=== PATIENT | female | born 1985 | race Two or more races ===

== ENCOUNTER 2017-08-25 16:05 | Inpatient (IN) | payer MEDICAID ==
[~2017-08-25] VITALS: Ht 154.9 cm; Wt 88.8 kg
[2017-08-25 16:28] VITALS: BP 136/82; PULSE 86; RESP 18; Ht 154.9 cm; Wt 88.8 kg
[2017-08-25] MEDS ORDERED: FERR325T5 PO (16:33)
[2017-08-25] MEDS ORDERED: PREN-99 PO (16:33)
[2017-08-25 17:32] LABS: ADD UMIC NO; UR ASCORBIC ACID NEGATIVE (NEGATIVE); UR BILIRUBIN (Dip) NEGATIVE (NEGATIVE); UR BLOOD (Dip) NEGATIVE (NEGATIVE); UR CLARITY CLEAR (CLEAR); UR COLOR YELLOW (YELLOW); UR GLUCOSE (Dip) 3+ mg/dL (NEGATIVE); UR KETONES (Dip) NEGATIVE (NEGATIVE); UR LEUKOCYTE ESTERASE (Dip) NEGATIVE Leu/ul (NEGATIVE); UR NITRITE (Dip) NEGATIVE (NEGATIVE); UR TOTAL PROTEIN (Dip) NEGATIVE (NEGATIVE); UR UROBILINOGEN (Dip) NEGATIVE (NEGATIVE)
--- NOTE | 2017-08-25 17:34 | TRIAGE ---
OB Triage Datetime Report Generated by CPN: 08/25/2017 17:34 Datetime: 08/25/2017 16:39 Vaginal Exam Dilatation (cms): 0.0 Exam By: KHEMANI Vaginal Bleeding: None Pool: Negative Nitrazine: Negative Cervix, Position: Posterior Datetime: 08/25/2017 16:20 Stage of : OB Triage Assessment Type: Triage Maternal Assessment Level of Consciousness: Fully Conscious DTR's/Clonus: DTRs 2+; No Clonus Headache: Denies Blurred Vision: No Respiratory Effort: Unlabored; Regular Rhythm; Equal Expansion Breath Sounds, Left: Clear and Equal Breath Sounds, Right: Clear and Equal Nausea/Vomiting: Denies RUQ Epigastric Pain: Denies Lower Extremities Edema: None Degree: None Upper Extremities Edema: None Degree: None Facial Edema: None Temperature Route: Oral Fall Risk Assessment History of Falling: (0) No Secondary Diagnosis: (0) No Ambulatory Aid: (0) Bedrest/Nurse Assist IV Therapy: (0) No Gait: (0) Normal/Bedrest/Immobile Mental Status: (0) Oriented to Own Ability Fall Score: 0 Fall Risk Score Definition: No Risk: No action required Labor Evaluation Frequency: none Monitor Mode: External Heart Rate FHR Baseline Rate: 125 Monitor Mode: External US FHR Baseline Changes: No Baseline Change Variability: Moderate 6-25 bpm Decelerations: None Category: Category I Pain Assessment Pain Scale: 4 Pain Presence: Intermittent Pain Type: Contraction; Ache Pain Location: Abdomen Datetime: 08/25/2017 16:17 Time of Arrival: 08/25/2017 16:02 EGA: 38.4 Arrived By: Ambulatory Arrived From: Home Chief Complaint: uterine contractions from 0630 am and possible SROM Movement: Present Contractions: Regular Time Contractions Began: 08/25/2017 06:30 Contractions: 30 Rupture of Membranes: Unsure Vaginal Bleeding: None Vaginal Discharge: Present Recent Sexual Intercouse: Denies Abdominal Trauma: Not Applicable Patient Complaints: Contractions; Other Time Provider Notified: 08/25/2017 17:08 Provider Notified: ALEX Initial Plan: EFM/SVE/ROM PLUS/BPP/UA
--- NOTE | 2017-08-25 17:35 | RADRPT ---
PROCEDURE: US biophysical profile. CLINICAL INDICATION: labor at 38 weeks gestational age. TECHNIQUE: Multiple sonographic images of the uterus were obtained. The images were revi ewed on a PACS workstation. COMPARISON: No prior studies are available for comparison. FINDINGS: There is a single live intrauterine gestation. heart rate is 143 beats per minute. The position is cephalic. The placenta is posterior grade II with no abruption or previa. The SYLVIA is 4.9 cm. (Normal = 5-20 cm.) Breathing Movement: 2 Gross Body Movement: 2 Tone: 2 Qualitative Amniotic Fluid Volume: 0 TOTAL: 6 IMPRESSION: 1. The biophysical score is 6/8. 2. Mild oligohydramnios. RPTAT: QQ .Karthik Rodgers MD, Date Time Electronically viewed and signed by .Karthik Rodgers MD, on 08/25/2017 17:35 .R/
[2017-08-25] MEDS ORDERED: OXYTOCIN 30 UNITS/LR 500 ML IV SCH ×2 (18:00)
[2017-08-25] MEDS ORDERED: MISOPROSTOL 200 MCG TAB PR PRN (18:00)
[2017-08-25] MEDS ORDERED: METHYLERGONOVINE 0.2 MG INJ IM PRN (18:00)
[2017-08-25] MEDS ORDERED: MISOPROSTOL 25 MCG CAPSULE PO SCH (18:00)
[2017-08-25] MEDS ORDERED: IBUPROFEN 600 MG TAB PO PRN (18:00)
[2017-08-25] MEDS ORDERED: OXYTOCIN 30 UNITS/LR 500 ML IV PRN (18:00)
[2017-08-25] MEDS ORDERED: LIDOCAINE 1% (MPF) 30 ML INJ INJ PRN (18:00)
[2017-08-25] MEDS ORDERED: CARBOPROST 250 MCG INJ IM PRN (18:00)
[2017-08-25] MEDS ORDERED: DINOPROSTONE 10 MG VAG SUPP VAG ONE ×2 (18:00→19:30)
[2017-08-25] MEDS ORDERED: LACTATED RINGER'S 1,000 ML IV PRN (18:00)
[2017-08-25] MEDS ORDERED: BUTORPHANOL 2 MG INJ IV PRN (18:00)
[2017-08-25] MEDS: LACTATED RINGER'S 1,000 ML IV SCH (19:37)
--- NOTE | 2017-08-25 20:07 | HP ---
Date/Time of Note Date/Time of Note DATE: 08/25/17 TIME: 20:02 OB - History Hx of Present Free Text/Dictation 31 y.o A2(sab) at 38ww4d with c/o irregular UC and SROMwhich was confirmed by ROM plus SYLVIA 4.9 EFM shows irregular U.C VE closed /long -3 admitted for induction of labor Chief Complaint: uc and srom Estimated Due Date: Sep 04, 2017 : 3 Para: 0 Spontaneous : 2 Therapeutic : 0 Care: Limited Care Ultrasounds: Normal mid trimester US Obstetrical Complications: None Medical Complications: None ( ) Past Family/Social History * Past Medical, Surgical, Family and Obstetric Histories reviewed from chart. Blood Type: O+ Rubella: immune RPR/VDRL: Negative GBS Status: Negative HBsAG: Negative OB Admission Exam Vital Signs Vital Signs Vital Signs Date Time Temp Pulse Resp B/P Pulse Ox O2 Delivery O2 Flow Rate FiO2 08/25/17 16:28 98.9 86 18 136/82 Room Air Physical Exam HEENT: WNL Heart: Rhythm Normal Lungs: Clear, Equal Abdomen: WNL Extremities: Normal Reflexes: Normal Cervical Dilatation: None Effacement: 0% Station: -3 Membranes: Ruptured Amniotic Fluid: Clear Heart Rate: 120's Accelerations: Accelerations Present Decelerations: No Decelerations Varibility: Moderate Contractions on Admission: >10 Minutes Apart Intensity: Mild OB Assessment/Plan Reason for admission: induction of labor, rupture of membranes Induction Method: per Misoprostol Protocol ISADORA GAMEZ MD Aug 25, 2017 20:07
[2017-08-25 20:09] LABS: BASOPHILS % 0.2 % (0.0-2.0); EOSINOPHILS % 0.1 % (0.0-7.0); HEMATOCRIT 41.7 % (37.0-47.0); HEMOGLOBIN 13.9 g/dl (12.0-16.0); LYMPHOCYTES # 1.6 10^3/ul (0.8-2.9); LYMPHOCYTES % 17.5 % (15.0-51.0); MEAN CORPUSCULAR HEMOGLOBIN 26.7 pg (29.0-33.0); MEAN CORPUSCULAR HGB CONC 33.3 g/dl (32.0-37.0); MEAN PLATELET VOLUME 11.3 fl (7.4-10.4); MONOCYTE # 0.5 10^3/ul (0.3-0.9); MONOCYTES % 5.9 % (0.0-11.0); NEUTROPHIL # 6.7 10^3/ul (1.6-7.5); PLATELET COUNT 268 10^3/UL (140-415); RED BLOOD COUNT 5.21 10^6/ul (4.20-5.40); RED CELL DISTRIBUTION WIDTH 16.4 % (11.5-14.5); WHITE BLOOD COUNT 8.9 10^3/ul (4.8-10.8)
[2017-08-25 20:23] LABS: ALBUMIN 3.8 g/dl (3.3-4.9); ALBUMIN/GLOBULIN RATIO 0.97; BILIRUBIN,INDIRECT 0.2 mg/dl (0-1.1); BILIRUBIN,TOTAL 0.2 mg/dl (0.2-1.3); CALCIUM 9.6 mg/dl (8.4-10.2); CREATININE 0.65 mg/dl (0.44-1.00); POTASSIUM 3.9 mmol/L (3.5-5.1); TOTAL PROTEIN 7.7 g/dl (6.1-8.1); URIC ACID 2.6 mg/dl (3.1-7.9)
[2017-08-25 20:58] LABS: INR 0.94; PROTIME 12.6 Sec (12.2-14.2)
[2017-08-26] MEDS ORDERED: FENTAnyl 2MCG/ML-ROPIV 0.2% 100 ML ONE (00:17)
[2017-08-26] MEDS ORDERED: NALOXONE (0.4 MG/ML) INJ IV PRN (01:00)
[2017-08-26] MEDS ORDERED: FENTAnyl 2MCG/ML-ROPIV 0.2% 100 ML BAG EPI SCH (01:00)
[2017-08-26] MEDS: LACTATED RINGER'S 1,000 ML IV SCH ×2 (02:06→16:40)
--- NOTE | 2017-08-26 07:06 | LDN ---
Date/Time of Note Date/Time of Note DATE: 08/26/17 TIME: 07:01 Delivery Summary normal vaginal delivery Weeks of Gestation 38w5d Placenta Delivered: Spontaneously Meconium: none Episiotomy: Yes Indication for episiotomy op and short perineum RML Perineal laceration: 0 Anesthesia type: Epidural Estimated blood loss: 300 Sponge & Needle done & correct: Yes All needle counts correct: Yes Any foreign bodies felt in the: No Problems: Infant Delivery Information Sex Sex: male Apgars 1 Minute: 9 5 Minute: 9 Suctioning Nose & mouth suctioned at rad: Yes Delee suction performed: No Umbilical Cord Umbilical cord with: 3 Vessels Cord presentations: no nuchal cord Cord Blood was obtained: Yes Mother & Baby Disposition Disposition Mom & Baby to Maternity; Good: Yes Mom transferred to: Other Baby to NICU: No () ISADORA GAMEZ MD Aug 26, 2017 07:06
[2017-08-26] MEDS ORDERED: OXYCODONE/ASPIRIN (4.88/325) TAB ONE (07:54)
[2017-08-26] MEDS ORDERED: METHYLERGONOVINE 0.2 MG INJ IM PRN (08:00)
[2017-08-26] MEDS ORDERED: CARBOPROST 250 MCG INJ IM PRN (08:00)
[2017-08-26] MEDS ORDERED: OXYCODONE/ASPIRIN (4.88/325) TAB PO PRN ×2 (08:00)
[2017-08-26] MEDS ORDERED: ZOLPIDEM 5 MG TAB PO PRN (08:00)
[2017-08-26] MEDS ORDERED: LANOLIN 7 GM TUBE TOP PRN (08:00)
[2017-08-26] MEDS ORDERED: MISOPROSTOL 200 MCG TAB PR PRN (08:00)
[2017-08-26] MEDS ORDERED: OXYTOCIN 30 UNITS/LR 500 ML IV PRN (08:00)
[2017-08-26 08:40] VITALS: BP 130/76; PULSE 76; RESP 20
[2017-08-26] MEDS: WITCH HAZEL/GLYCERIN PAD PR PRN (10:39)
[2017-08-26] MEDS: BENZOCAINE 20% 56 ML SPRAY TOP PRN (10:39)
[2017-08-26] MEDS: SENNA/DOCUSATE NA (8.6MG/50MG) TAB PO SCH ×2 (10:40→21:12)
[2017-08-26 11:50] VITALS: BP 123/60; PULSE 92; RESP 20
[2017-08-26] MEDS: IBUPROFEN 600 MG TAB PO SCH ×2 (12:00→18:35)
[2017-08-26 16:46] VITALS: BP 118/57; PULSE 78; RESP 20
[2017-08-26 19:45] VITALS: BP 113/67; PULSE 83; RESP 18
[2017-08-27] VITALS: BP 105/72; PULSE 78; RESP 18
[2017-08-27] MEDS: IBUPROFEN 600 MG TAB PO SCH ×4 (00:01→17:05)
[2017-08-27] MEDS: LACTATED RINGER'S 1,000 ML IV SCH ×2 (00:02→08:00)
[2017-08-27 04:13] VITALS: BP 114/68; PULSE 75; RESP 18
[2017-08-27 07:30] VITALS: BP 117/72; PULSE 78; RESP 18
[2017-08-27] MEDS: SENNA/DOCUSATE NA (8.6MG/50MG) TAB PO SCH ×2 (09:09→21:00)
[2017-08-27 10:37] LABS: BASOPHILS % 0.2 % (0.0-2.0); EOSINOPHILS % 0.3 % (0.0-7.0); HEMATOCRIT 31.5 % (37.0-47.0); HEMOGLOBIN 10.6 g/dl (12.0-16.0); LYMPHOCYTES # 2.5 10^3/ul (0.8-2.9); LYMPHOCYTES % 19.5 % (15.0-51.0); MEAN CORPUSCULAR HEMOGLOBIN 27.3 pg (29.0-33.0); MEAN CORPUSCULAR HGB CONC 33.7 g/dl (32.0-37.0); MEAN CORPUSCULAR VOLUME 81.2 fl (82.0-101.0); MEAN PLATELET VOLUME 11.6 fl (7.4-10.4); MONOCYTE # 0.7 10^3/ul (0.3-0.9); MONOCYTES % 5.4 % (0.0-11.0); NEUTROPHIL # 9.4 10^3/ul (1.6-7.5); PLATELET COUNT 217 10^3/UL (140-415); RED BLOOD COUNT 3.88 10^6/ul (4.20-5.40); RED CELL DISTRIBUTION WIDTH 16.8 % (11.5-14.5); WHITE BLOOD COUNT 12.7 10^3/ul (4.8-10.8)
[2017-08-27 15:45] VITALS: BP 114/66; PULSE 76; RESP 16
--- NOTE | 2017-08-27 19:09 | PN ---
Date/Time of Note Date/Time of Note DATE: 08/27/17 TIME: 19:03 OB Subjective Subjective Subjective cardona out urination ok OB Objective Objective Objective vss afebrile fundus firm lochia min calf neg for tenderness HEENT: WNL Heart: Rhythm Normal Lungs: Clear, Equal Abdomen: WNL Extremities: Normal Reflexes: Normal OB Assessment/Plan Other Assessment: stable Other plan: d/s home in am ISADORA GAMEZ MD Aug 27, 2017 19:09
[2017-08-27 20:15] VITALS: BP 124/76; PULSE 72; RESP 18
[2017-08-28] MEDS: IBUPROFEN 600 MG TAB PO SCH ×3 (00:01→12:29)
[2017-08-28 03:45] VITALS: BP 117/87; PULSE 87; RESP 18
--- NOTE | 2017-08-28 05:34 | PD.PPDC ---
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
--- NOTE | 2017-08-28 05:38 | DS ---
Date/Time of Note Date/Time of Note DATE: 08/28/17 TIME: 05:35 Obstetrical Discharge Record Final Diagnosis Final Diagnosis: Term delivered Vaginal Delivery Obstetrical Delivery: Spontaneous, Episiotomy, Repaired Complications Induction: Yes Rupture of Membranes: No Condition on Discharge Physical Assessment Last Vitals: vss afebrile Voiding: Yes Bowel Movement: Yes Breast: Soft, non-tender Fundus: Firm Episiotomy: healing ok Calf Tenderness: No Patient Condition: Stable ISADORA GAMEZ MD Aug 28, 2017 05:38
[2017-08-28] MEDS: WITCH HAZEL/GLYCERIN PAD PR PRN (05:50)
[2017-08-28] MEDS: BENZOCAINE 20% 56 ML SPRAY TOP PRN (05:50)
[2017-08-28 08:20] VITALS: BP 114/71; PULSE 74; RESP 18
[2017-08-28] MEDS ORDERED: DIPHTH/TET/ACEL PERTUSS (ADULT) 0.5 ML VIAL IM* ONE (09:00)
[2017-08-28] MEDS: SENNA/DOCUSATE NA (8.6MG/50MG) TAB PO SCH (09:00)
== END 2017-08-28 13:25 | disposition home or self-care (01) | DRG 775 ==
LOC: OBT 16:05 → L-D 16:07 → OBT 17:30 → L-D 17:30 → PP1 08-26 08:39
PROVIDERS: ADMIT Obstetrics & Gynecology; ATTEND Obstetrics & Gynecology
PROC: 4A1HXCZ Monitoring of Products of Conception, Cardiac Rate, External Approach (ICD-10-PCS; 2017-08-25)
PROC: 10E0XZZ Delivery of Products of Conception, External Approach (ICD-10-PCS; principal; 2017-08-26)
PROC: 0W8NXZZ Division of Female Perineum, External Approach (ICD-10-PCS; 2017-08-26)
DX: O80 Encounter for full-term uncomplicated delivery (principal); Z37.0 Single live birth; Z3A.38 38 weeks gestation of pregnancy
CPT/HCPCS: 62319; 76818; 80053; 81003; 84112; 84560; 85025; 85384; 85610; 85730; 86592; 86703; 86900; 86901; 87340; G0463; J2590; J3010; J7120

== ENCOUNTER 2018-12-24 22:42 | Inpatient (IN) | payer MEDICAID ==
[~2018-12-24] VITALS: Ht 162.6 cm; Wt 98.6 kg
[~2018-12-24 22:42] MED LIST: FERR325T5 PO; PREN-99 PO
[2018-12-24 22:50] VITALS: BP 143/90; PULSE 101; RESP 18; Ht 162.6 cm; Wt 98.6 kg
[2018-12-24] MEDS ORDERED: CALC600T24 PO (23:00)
[2018-12-25] MEDS ORDERED: LACTATED RINGER'S 1,000 ML IV PRN (01:04)
[2018-12-25] MEDS ORDERED: METHYLERGONOVINE 0.2 MG INJ IM PRN ×2 (01:30→22:30)
[2018-12-25] MEDS ORDERED: LIDOCAINE 1% (MPF) 30 ML INJ INJ PRN (01:30)
[2018-12-25] MEDS ORDERED: CARBOPROST 250 MCG INJ IM PRN ×2 (01:30→22:30)
[2018-12-25] MEDS ORDERED: MINERAL OIL LIGHT 10 ML VIAL TOP ONE (01:30)
[2018-12-25] MEDS ORDERED: IBUPROFEN 600 MG TAB PO PRN (01:30)
[2018-12-25] MEDS ORDERED: MISOPROSTOL 200 MCG TAB PR PRN ×2 (01:30→22:30)
[2018-12-25] MEDS ORDERED: BUTORPHANOL 2 MG INJ IV PRN (01:30)
[2018-12-25] MEDS ORDERED: OXYTOCIN 30 UNITS/LR 500 ML IV PRN ×2 (01:30→22:30)
[2018-12-25] MEDS ORDERED: OXYTOCIN 30 UNITS/LR 500 ML IV SCH ×3 (01:30)
--- NOTE | 2018-12-25 01:52 | HP ---
Date/Time of Note Date/Time of Note DATE: 12/25/18 TIME: 01:46 OB - History Hx of Present Free Text/Dictation 33-year-old man with single intrauterine at 37 weeks and 4 days with a THE[place] of 01/11/2019 complaining of vaginal spotting and back pain. she states good movement. She denies nausea, vomiting, shortness of breath, chest pain, headache, visual changes or LOF. Chief Complaint: Vaginal spotting and back pain Estimated Due Date: Jan 11, 2019 : 2 Para: 1 Spontaneous : 0 Therapeutic : 0 Care: Good Care Ultrasounds: Normal mid trimester US Obstetrical Complications: None Medical Complications: None Past Family/Social History * Past Medical, Surgical, Family and Obstetric Histories reviewed from chart. Blood Type: O+ Rubella: immune RPR/VDRL: Negative GBS Status: Negative HBsAG: Negative OB Admission Exam Vital Signs Vital Signs Vital Signs Date Temp Pulse Resp B/P (MAP) Pulse Ox O2 O2 Flow FiO2 Time Delivery Rate 12/24/18 98.0 101 18 143/90 Room Air 22:50 (107) Physical Exam HEENT: WNL Heart: Rhythm Normal Abdomen: WNL Extremities: Normal Reflexes: Normal Cervical Dilatation: 2cm Effacement: 50% Station: -2 Membranes: Intact Heart Rate: 140's Accelerations: Accelerations Present Decelerations: No Decelerations Varibility: Moderate Contractions on Admission: 6-10 Minutes Apart Intensity: Mild Last 72 hours Lab Results CBC & BMP 12/24/18 23:35 Liver Function Test 12/24/18 23:35 Alanine Aminotransferase (ALT/SGPT) < 6 L Albumin 3.5 Alkaline Phosphatase 195 H Aspartate Amino Transf (AST/SGOT) 14 L Direct Bilirubin 0.00 Total Protein 6.8 OB Assessment/Plan Other plan: 33-year-old 2 para 1 with gestational hypertension versus preeclampsia at 37 weeks and 4 days- FHR: No sign of metabolic acidosis- Category I - Continuous EFM, toco - CBC, blood type and screen, CMP uric acid and urinalysis - Cytotec per protocol - Analgesia options with R/B/A discussed in detail with patient - Epidural per patient request - Please see the orders - O+/Rubella: Immune - GBS: Negative Admission, procedures, expectations, risks and possible complications have been discussed in detail with the patient. Risk of vaginal delivery including but not limited to bleeding, infection, cervical laceration, placental retention, injury to fetus, blood transfusion, blood transfusion related infection, risk of anesthesia, adhesion, cervical laceration, episiotomy/laceration, possible delivery with risk of bleeding, infection, injury to other organs (bowel, bladder, ureter, vessels, nerves), injury to fetus, blood transfusion, blood transfusion related infection, risk of anesthesia, scar and hernia formation, needs for future , removal of uterus or any other indicated surgery discussed with the patient. She expressed understanding and repeats the risks. All of her questions were answered. She signed the informed consent. PHYSICIAN'S VERIFICATION OF INFORMED CONSENT The patient was counseled regarding the procedure, its indications, risks, potential complications and alternatives and any questions were answered. Co nsent was obtained. PLANNED PROCEDURE/TREATMENT: Vaginal delivery, episiotomy, repair of laceration possible delivery BROOKE ESPOSITO Dec 25, 2018 01:52
[2018-12-25] MEDS: LACTATED RINGER'S 1,000 ML IV SCH ×3 (02:34→19:41)
--- NOTE | 2018-12-25 02:44 | TRIAGE ---
OB Triage Datetime Report Generated by CPN: 12/25/2018 02:44 Datetime: 12/25/2018 02:30 Stage of : Labor Assessment Type: Admission Assessment Vaginal Bleeding: None Maternal Assessment Level of Consciousness: Fully Conscious DTR's/Clonus: DTRs 2+; No Clonus Headache: Denies Blurred Vision: No Respiratory Effort: Unlabored; Regular Rhythm; Equal Expansion Breath Sounds, Left: Clear and Equal Breath Sounds, Right: Clear and Equal Nausea/Vomiting: Denies RUQ Epigastric Pain: Denies Lower Extremities Edema: None Degree: None Upper Extremities Edema: None Degree: None Facial Edema: None Temperature Route: Oral Fall Risk Assessment History of Falling: (0) No Secondary Diagnosis: (0) No Ambulatory Aid: (0) Bedrest/Nurse Assist IV Therapy: (20) Yes Gait: (0) Normal/Bedrest/Immobile Mental Status: (0) Oriented to Own Ability Fall Score: 20 Fall Risk Score Definition: No Risk: No action required Labor Evaluation Frequency: irregular Monitor Mode: External Pattern: Normal: <= 5 Contractions in 10 Minutes Resting Tone [place]: Relaxed Heart Rate FHR Baseline Rate: 135 Monitor Mode: External US Variability: Moderate 6-25 bpm Accelerations: 15X15 Decelerations: None Category: Category I Pain Assessment Pain Scale: 0 Pain Presence: None/Denies Pain Type: N/A Membrane Status: Intact Datetime: 12/25/2018 02:00 Time of Arrival: 12/25/2018 02:00 EGA: 37.4 Arrived By: Ambulatory Labor Evaluation Frequency: OCCASIONAL Monitor Mode: External Duration (sec)2399: 60-80 Pattern: Normal: <= 5 Contractions in 10 Minutes Heart Rate FHR Baseline Rate: 140 Monitor Mode: External US Variability: Minimal - Undetectable to <=5 bpm Decelerations: None Datetime: 12/25/2018 01:45 Stage of : Labor Datetime: 12/25/2018 01:00 Monitor Mode: External Pattern: Normal: <= 5 Contractions in 10 Minutes Heart Rate FHR Baseline Rate: 135 Monitor Mode: External US Variability: Moderate 6-25 bpm Accelerations: 15X15 Decelerations: Variable Datetime: 12/25/2018 00:28 Monitor Mode: External Monitor Mode: External US Pain Assessment Comments: PT STATES SHE HAS CONTINUED TO NOT FEEL UC'S WHILE HERE Datetime: 12/25/2018 00:00 Labor Evaluation Frequency: X1 Monitor Mode: External Duration (sec)2399: 60 Pattern: Normal: <= 5 Contractions in 10 Minutes Heart Rate FHR Baseline Rate: 135 Monitor Mode: External US Variability: Moderate 6-25 bpm Accelerations: 15X15 Decelerations: None Datetime: 12/24/2018 23:10 Pain Assessment Comments: PT STATES SHE HAS NOT FELT A SINGLE UC OR BACK PAIN WHILE SHE HAS BEEN HE RE Vaginal Exam Dilatation (cms): 2.0 Effacement (%): 50 Station: -3 Datetime: 12/24/2018 23:00 Monitor Mode: External Pattern: Normal: <= 5 Contractions in 10 Minutes Heart Rate FHR Baseline Rate: 135 Monitor Mode: External US Variability: Moderate 6-25 bpm Accelerations: 15X15 Decelerations: None Datetime: 12/24/2018 22:50 Stage of : OB Triage Maternal Assessment Level of Consciousness: Fully Conscious DTR's/Clonus: DTRs 2+; No Clonus Headache: Denies Breath Sounds, Left: Clear and Equal Breath Sounds, Right: Clear and Equal Nausea/Vomiting: Denies RUQ Epigastric Pain: Denies Temperature Route: Oral Pain Assessment Pain Scale: 5 Pain Presence: Intermittent Pain Type: Contraction Pain Location: Back Pain Goal: 0 Pain Relief Measures: Comfort Measures Datetime: 12/24/2018 22:46 Time of Arrival: 12/24/2018 22:35 EGA: 37.3 Arrived From: Home Chief Complaint: back pain, contractions and spotting Movement: Present Contractions: Regular Time Contractions Began: 12/23/2018 19:00 Contractions: Q5min Rupture of Membranes: Denies Vaginal Bleeding: Normal Show Vaginal Discharge: Denies Recent Sexual Intercouse: Denies Patient Complaints: Contractions Time Provider Notified: 12/24/2018 23:15 Provider Notified: VERA Initial Plan: CEFM, SVE Datetime: 12/24/2018 22:45 Time of Arrival: 12/24/2018 22:35 Arrived By: Wheelchair Arrived From: Home Chief Complaint: back pain and spotting Movement: Present Initial Plan: cefm, sve, BPP, EFW, CBC, CMP, URIC ACID AND UA
--- NOTE | 2018-12-25 11:22 | PREAC ---
Date/Time of Note Date/Time of Note DATE: 12/25/18 TIME: 11:21 Anesthesia Eval and Record Evaluation Time Pre-Procedure Interview DATE: 12/25/18 TIME: 11:21 Age 33 Sex female NPO: 8 hrs Preoperative diagnosis iup at 37 weeks Planned procedure labor epidural Past Medical History Past Medical History: Includes GI: Obesity : PIH Surgery & Anesthesia Issues No known issue Meds Anticoagulation: No Beta Brian within 24 hr: No Reason Beta Brian not given: Pt. not on B-Brian Reported Medications Calcium Carbonate* (Calcium Carbonate*) 600 MG Ca Tab, 600 MG PO, TAB 12/24/18 Ferrous Sulfate (Ferrous Sulfate) 325 Mg Tablet.dr, 325 MG PO DAILY 08/25/17 Vit #76/Iron,Carb/FA (Pnv 29-1 Tablet) 1 Each Tablet, 1 EACH PO DAILY, TAB 08/25/17 Current Medications Lactated Ringer's 1,000 ml @ 125 mls/hr Q8H IV Last administered on 12/25/18at 09:15; Admin Dose 125 MLS/HR; Start 12/25/18 at 01:04 Butorphanol Tartrate (Stadol) 2 mg Q2H PRN IV .PAIN; Start 12/25/18 at 01:30 Lidocaine (Xylocaine 1% (Mpf)) 30 ml ONCE PRN INJ .EPISIOTOMY; Start 12/25/18 at 01:30 Oxytocin/Lactated Ringer's 500 ml @ 500 mls/hr ONCE POST IV ; Start 12/25/18 at 01:30 Oxytocin/Lactated Ringer's 500 ml @ 125 mls/hr POST IV ; Start 12/25/18 at 01:30 Ibuprofen (Motrin) 600 mg ONCE PRN PO .PAIN 1-5; Start 12/25/18 at 01:30 Lactated Ringer's 1,000 ml @ 2,000 mls/hr Q30M PRN IV .ANESTHESIA; Start 12/25/18 at 01:04 Oxytocin/Lactated Ringer's 500 ml @ 0 mls/hr ONCE PRN IV .VAGINAL BLEEDING; Start 12/25/18 at 01:30 Methylergonovine Maleate (Methergine) 0.2 mg ONCE PRN IM .VAGINAL BLEEDING; Start 12/25/18 at 01:30 Carboprost Tromethamine (Hemabate) 250 mcg ONCE PRN IM .VAGINAL BLEEDING; Start 12/25/18 at 01:30 Misoprostol (Cytotec) 1,000 mcg ONCE PRN [place] .VAGINAL BLEEDING; Start 12/25/18 at 01:30 Oxytocin/Lactated Ringer's 500 ml @ 0 mls/hr FOR INDUCTION IV Last administered on 12/25/18at 03:24; Admin Dose 1 MLS/HR; Start 12/25/18 at 01:30 Meds reviewed: Yes Allergies Coded Allergies: latex (Unverified Allergy, Mild, 08/25/17) itchiness, swelling Allergies Reviewed: Yes Labs/Studies Labs Reviewed: Reviewed by anesthesiologist Result Diagram: 12/24/18 2335 12/24/18 2335 Laboratory Tests 12/24/18 23:35 Blood Bank Test 12/24/18 23:35 Antibody Screen NEGATIVE Blood Type O POSITIVE Rh Immune Globulin Candidate NO test: Positive Pre-procedure Exam Last vitals Vital Signs Date Temp Pulse Resp B/P (MAP) Pulse Ox O2 O2 Flow FiO2 Time Delivery Rate 12/24/18 98.0 101 18 143/90 Room Air 22:50 (107) Airway: Adequate mouth opening, Adequate thyromental dist Mallampati: Mallampati II Teeth: Normal Lung: Normal Heart: Normal ASA Physical Status ASA physical status: 2 Emergency: None Planned Anesthetic Neuraxial: Epidural Planned Pain Management Parenteral pain med Pre-operative Attestations Prior to commencing anesthesia and surgery, the patient was re-evaluated, there was verification of: *The patient's identity *The results of appropriate recent lab work and preoperative vital signs *The above evaluation not changing prior to induction *Anesthetic plan, risk benefits, alternative and complications discussed with patient/family; questions answered; patient/family understands, accepts and wishes to proceed. SANIYA LYLE Dec 25, 2018 11:22
[2018-12-25] MEDS ORDERED: FENTAnyl 2MCG/ML-ROPIV 0.2% 100 ML ONE (11:24)
[2018-12-25] MEDS ORDERED: FENTAnyl 2MCG/ML-ROPIV 0.2% 100 ML BAG EPI SCH (11:30)
[2018-12-25] MEDS ORDERED: DIPHENHYDRAMINE 50 MG INJ IV PRN ×2 (11:30→22:30)
[2018-12-25] MEDS ORDERED: NALOXONE (0.4 MG/ML) INJ IV PRN (11:30)
[2018-12-25] MEDS ORDERED: ONDANSETRON 4 MG INJ IV PRN ×2 (11:30→22:30)
--- NOTE | 2018-12-25 13:11 | PAC ---
Date/Time of Note Date/Time of Note DATE: 12/25/18 TIME: 13:11 Post-Anesthesia Notes Post-Anesthesia Note Last documented vital signs Vital Signs Date Temp Pulse Resp B/P (MAP) Pulse Ox O2 O2 Flow FiO2 Time Delivery Rate 12/25/18 98.0 101 18 143/90 Room Air 1311 (107) Activity: WNL Respiratory function: WNL Cardiovascular function: WNL Mental status: Baseline Pain reasonably controlled: Yes Hydration appropriate: Yes Nausea/Vomiting absent: Yes SANIYA LYLE Dec 25, 2018 13:11
--- NOTE | 2018-12-25 16:48 | PREAC ---
Date/Time of Note Date/Time of Note DATE: 12/25/18 TIME: 16:47 Anesthesia Eval and Record Evaluation Time Pre-Procedure Interview DATE: 12/25/18 TIME: 16:47 Age 33 Sex female NPO: 8 hrs Preoperative diagnosis iup at term with deceleration Planned procedure primary c section Past Medical History Past Medical History: Includes : PIH Surgery & Anesthesia Issues No known issue Meds Anticoagulation: No Beta Brian within 24 hr: No Reason Beta Brian not given: Pt. not on B-Brian Reported Medications Calcium Carbonate* (Calcium Carbonate*) 600 MG Ca Tab, 600 MG PO, TAB 12/24/18 Ferrous Sulfate (Ferrous Sulfate) 325 Mg Tablet.dr, 325 MG PO DAILY 08/25/17 Vit #76/Iron,Carb/FA (Pnv 29-1 Tablet) 1 Each Tablet, 1 EACH PO DAILY, TAB 08/25/17 Current Medications Lactated Ringer's 1,000 ml @ 125 mls/hr Q8H IV Last administered on 12/25/18at 09:15; Admin Dose 125 MLS/HR; Start 12/25/18 at 01:04 Butorphanol Tartrate (Stadol) 2 mg Q2H PRN IV .PAIN; Start 12/25/18 at 01:30 Lidocaine (Xylocaine 1% (Mpf)) 30 ml ONCE PRN INJ .EPISIOTOMY; Start 12/25/18 at 01:30 Oxytocin/Lactated Ringer's 500 ml @ 500 mls/hr ONCE POST IV ; Start at 01:30 Oxytocin/Lactated Ringer's 500 ml @ 125 mls/hr POST IV ; Start 12/25/18 at 01:30 Ibuprofen (Motrin) 600 mg ONCE PRN PO .PAIN 1-5; Start 12/25/18 at 01:30 Lactated Ringer's 1,000 ml @ 2,000 mls/hr Q30M PRN IV .ANESTHESIA; Start 12/25/18 at 01:04 Oxytocin/Lactated Ringer's 500 ml @ 0 mls/hr ONCE PRN IV .VAGINAL BLEEDING; Start 12/25/18 at 01:30 Methylergonovine Maleate (Methergine) 0.2 mg ONCE PRN IM .VAGINAL BLEEDING; Start 12/25/18 at 01:30 Carboprost Tromethamine (Hemabate) 250 mcg ONCE PRN IM .VAGINAL BLEEDING; Start 12/25/18 at 01:30 Misoprostol (Cytotec) 1,000 mcg ONCE PRN [place] .VAGINAL BLEEDING; Start 12/25/18 at 01:30 Oxytocin/Lactated Ringer's 500 ml @ 0 mls/hr FOR INDUCTION IV Last administered on 12/25/18at 03:24; Admin Dose 1 MLS/HR; Start 12/25/18 at 01:30 Naloxone HCl (Narcan) 0.1 mg Q2M PRN IV .RESP RATE; Start 12/25/18 at 11:30; Stop 12/26/18 at 11:29 Diphenhydramine HCl (Benadryl) 25 mg Q6H PRN IV .ITCHING; Start 12/25/18 at 11:30; Stop 12/26/18 at 11:29 Ondansetron HCl (Zofran Inj) 4 mg Q6H PRN IV .NAUSEA/VOMITING; Start 12/25/18 at 11:30; Stop 12/26/18 at 11:29 Fentanyl/ Ropivacaine 100 ml EPIDURAL INFUSION EPI ; Start 12/25/18 at 11:30 Cefazolin Sodium/ Dextrose 50 ml @ 100 mls/hr ONCE IVPB ; Start 12/25/18 at 17:00; Stop 12/26/18 at 16:59 Meds reviewed: Yes Allergies Coded Allergies: latex (Unverified Allergy, Mild, 08/25/17) itchiness, swelling Allergies Reviewed: Yes Labs/Studies Labs Reviewed: Reviewed by anesthesiologist Result Diagram: 12/24/18 2335 12/24/18 2335 Laboratory Tests 12/24/18 23:35 Blood Bank Test 12/24/18 23:35 Antibody Screen NEGATIVE Blood Type O POSITIVE Rh Immune Globulin Candidate NO test: Positive Pre-procedure Exam Last vitals Vital Signs Date Temp Pulse Resp B/P (MAP) Pulse Ox O2 O2 Flow FiO2 Time Delivery Rate 12/24/18 98.0 101 18 143/90 Room Air 22:50 (107) Airway: Adequate mouth opening, Adequate thyromental dist Mallampati: Mallampati II Teeth: Normal Lung: Normal Heart: Normal ASA Physical Status ASA physical status: 2 Emergency: None Planned Anesthetic Neuraxial: Epidural Planned Pain Management Epidural, Parenteral pain med Pre-operative Attestations Prior to commencing anesthesia and surgery, the patient was re-evaluated, there was verification of: *The patient's identity *The results of appropriate recent lab work and preoperative vital signs *The above evaluation not changing prior to induction *Anesthetic plan, risk benefits, alternative and complications discussed with pa tient/family; questions answered; patient/family understands, accepts and wishes to proceed. SANIYA LYLE Dec 25, 2018 16:48
[2018-12-25] MEDS ORDERED: LIDOCAINE 1.5%/EPI MPF (SDV) 30 ML VIAL ONE (16:49)
[2018-12-25] MEDS ORDERED: FENTAnyl 50 MCG/ML VIAL ONE (16:49)
[2018-12-25] MEDS ORDERED: DEXAMETHASONE 4 MG/ML 1 ML INJ ONE (16:51)
[2018-12-25] MEDS ORDERED: CEFAZOLIN 2 GM/50 ML (PMX) 50 ML IVPB SCH ×3 (17:00→23:30)
--- NOTE | 2018-12-25 17:02 | QN ---
Documentation Comment VE complete but high on second stage prolong bradycardia down to 60's for few min back to base line which was 120's but another eisode of 80s for 1min head is high 3800gm previous baby 5lb's primary c/s chosen to be mode of delivery due to prolong bradycardia ISADORA GAMEZ MD Dec 25, 2018 17:02
[2018-12-25] MEDS ORDERED: morphine SULFATE/PF (10 MG/10 ML) INJ ONE (17:19)
[2018-12-25] MEDS ORDERED: EPHEDrine 25 MG/5 ML SYG ONE (17:28)
--- NOTE | 2018-12-25 19:12 | OPPN ---
Date/Time of Note Date/Time of Note DATE: 12/25/18 TIME: 19:07 Operative Report Planned Procedure Free Text/Dictation see preop note on quick note Procedure date Dec 25, 2018 Procedure(s) primary LTCS Performed by see signature line Joy Loader: YANN ALVAREZ MD 2nd Joy Loader none Anesthesiologist: SANIYA LYLE Pre-procedure diagnosis IUP 37w4d GHTN prolong ed bradycardia second stage arrest [id number] Anesthesia Type: Facax4l epidural Post-Procedure Post-procedure diagnosis delivered normal male occult cord prolapse Findings Live Baby [m], Apgars [3] and [9], weight [8Lb 6oz ], position OA ], [VX ] presentation [occuly prolapse]cord. Estimated Blood Loss: 500 - 600 mls Specimen(s) none Grafts/Implant(s) none Complication(s) none ISADORA GAMEZ MD Dec 25, 2018 19:12
[2018-12-25] MEDS ORDERED: MEPERIDINE 25 MG INJ ONE (19:21)
[2018-12-25] MEDS ORDERED: MEPERIDINE 25 MG INJ IV ONE (19:30)
--- NOTE | 2018-12-25 20:29 | OPR ---
DATE OF OPERATION: 12/25/2018 PREOPERATIVE DIAGNOSES: Intrauterine 37 weeks 4 days, prolonged bradycardia on second stag e and gestational hypertension, occult cord prolapse. POSTOPERATIVE DIAGNOSES: Intrauterine 37 weeks 4 days, prolonged bradycardia on second sta ge and gestational hypertension, occult cord prolapse. Delivered the normal male infant with 3 89. Fluid was clear. ANESTHESIA: Epidural. ANESTHESIOLOGIST: Sean Sneed MD SURGEON: Walt Wilson MD CELL TUBER MACHINE: Luly Holbrook MD ESTIMATED BLOOD LOSS: Approximately 600 mL. PROCEDURE: Under proper induction of epidural anesthesia, the patient was placed in the supine posit ion. Abdominal wall was prepped and draped in usual aseptic manner. A transverse incision was made and a fascial flap was created and 2 rectus muscles split in the midline and peritoneal cavity was en tered. Bladder blade introduced, a transverse incision was made much higher than the uterovesical re flection. Incision carried down and delivered normal male . The baby was impacted in the vagi na which was difficult to bring out, but upon entering the uterine cavity, there was a bundle of cord was coming out, which was pushed in and able to bring out the baby from the vagina and delivered and the cord was clamped and cut, handed to the respiratory care personnel, and baby was 389. ___ __ of cord was sent for the gas study after blood was obtained from the cord. The placenta was remov ed manually after uterus was exteriorized and uterus was enlarged with multiple uterine fibroids note d. The placenta was removed. The uterine incision was closed using 0 chromic catgut in continuous m jakob on the first layer and second layer using 0 chromic catgut in continuous manner. Because of th e lateral extension on the mesosalpinx, it was oozing on the right lateral aspect which need the extr a suture for controlling the bleeder. There were multiple areas that we need reinforced with #1 PDS with a [id number]-lfewj manner. After the incisional site was closed and because of the little oozing on the right lateral aspect close to the mesosalpinx, Surgiflo was introduced. After the uterus was relocated and rechecked and then put the Surgiflo on the right lateral aspect of the incisional site . The incision was relatively dry and water checked. There was no leaking blood. A piece of Surgic el was laid on the uterine incisional site after the vigorous irrigation was done. Lap count were mu ltiple counted which was correct. Parietal peritoneum was closed using 0 chromic catgut in continuou s manner, muscle closed with 0 chromic catgut in continuous manner. Fascia closed with #1 Vicryl in continuous manner in 2 segments. The subcutaneous tissue irrigated with water. This layer was appro ximated with a 2-0 plain in continuous manner. Skin closed with a 3-0 Monocryl in subcuticular artemio r. The Steri-Strips were applied. A pressure dressing applied. Estimated blood loss approximately 600 mL. Urine output was less than 100 mL, which was bloody, but the tubing was clear. The patient was sent to the recovery room in stable condition. Dictated By: WALT MERRITT/SAADIA Conf#: [id number] DID#: [id number]
--- NOTE | 2018-12-25 20:36 | PAC ---
Date/Time of Note Date/Time of Note DATE: 12/25/18 TIME: 20:35 Post-Anesthesia Notes Post-Anesthesia Note Last documented vital signs Vital Signs Date Temp Pulse Resp B/P (MAP) Pulse Ox O2 O2 Flow FiO2 Time Delivery Rate 12/25/18 98.0 101 18 143/90 Room Air 2030 (107) Activity: WNL Respiratory function: WNL Cardiovascular function: WNL Mental status: Baseline Pain reasonably controlled: Yes Hydration appropriate: Yes Nausea/Vomiting absent: Yes SANIYA LYLE Dec 25, 2018 20:36
[2018-12-25] MEDS ORDERED: CA GLUCONATE (GM) 10% 10ML INJ IV PRN (21:00)
[2018-12-25] MEDS ORDERED: MAGNESIUM SULFATE 4 GM/100 ML 100 ML IV SCH (21:00)
[2018-12-25] MEDS: MAGNESIUM SULFATE 20 GM/500 ML 500 ML IV SCH (21:19)
[2018-12-25 22:25] VITALS: BP 135/67; PULSE 109; RESP 18
[2018-12-25] MEDS ORDERED: LANOLIN HPA 1 PKT TOP PRN (22:30)
[2018-12-25] MEDS ORDERED: ZOLPIDEM 5 MG TAB PO PRN (22:30)
[2018-12-25] MEDS ORDERED: LACTATED RINGER'S 1,000 ML IV SCH (22:30)
[2018-12-25] MEDS ORDERED: OXYCODONE/ACETAMINOPHEN (5/325) TAB PO PRN ×2 (22:30)
[2018-12-25] MEDS: CLINDAMYCIN 600 MG/D5W (PMX) 50 ML IVPB SCH (23:49)
[2018-12-26] VITALS (19 sets, daily range): BP systolic 102–146; BP diastolic 51–78; PULSE 68–113; RESP 18–20
[2018-12-26] MEDS ORDERED: CEFAZOLIN 2 GM/50 ML (PMX) 50 ML IVPB SCH ×2 (01:00→13:00)
[2018-12-26] MEDS: CLINDAMYCIN 600 MG/D5W (PMX) 50 ML IVPB SCH ×3 (05:25→17:34)
[2018-12-26] MEDS: IBUPROFEN 600 MG TAB PO SCH ×5 (05:38→23:44)
[2018-12-26] MEDS: SENNA/DOCUSATE NA (8.6MG/50MG) TAB PO SCH ×2 (08:28→20:58)
[2018-12-26] MEDS: MAGNESIUM SULFATE 20 GM/500 ML 500 ML IV SCH (11:46)
[2018-12-26] MEDS: LACTATED RINGER'S 1,000 ML IV SCH (11:47)
--- NOTE | 2018-12-26 13:36 | QN ---
Documentation Comment no flatus vss afebrile abdomen soft wound dry calf neg for tenderness lochia mod A S/P prim c/s#1 P sa ordered ISADORA GAMEZ MD Dec 26, 2018 13:36
[2018-12-26] MEDS: CEFAZOLIN 2 GM in SOD CHLORIDE 0.9% 50 ML IVPB SCH (23:42)
[2018-12-27] MEDS: CLINDAMYCIN 600 MG/D5W (PMX) 50 ML IVPB SCH ×4 (00:28→17:56)
[2018-12-27 03:25] VITALS: BP 119/71; PULSE 87; RESP 18
[2018-12-27] MEDS: IBUPROFEN 600 MG TAB PO SCH ×3 (05:30→17:57)
[2018-12-27] MEDS: CEFAZOLIN 2 GM in SOD CHLORIDE 0.9% 50 ML IVPB SCH ×3 (06:33→21:47)
[2018-12-27 08:00] VITALS: BP 109/69; PULSE 81; RESP 18
--- NOTE | 2018-12-27 09:12 | OPPN ---
Date/Time of Note Date/Time of Note DATE: 12/27/18 TIME: 09:11 Anesthesia Follow up Anesthesia Follow up Last documented vital signs Vital Signs Date Temp Pulse Resp B/P (MAP) Pulse Ox O2 O2 Flow FiO2 Time Delivery Rate 12/27/18 98.7 87 18 119/71 Room Air 08:25 (87) 12/26/18 98 12:00 Respiratory function: WNL Cardiovascular function: WNL Comments satisfactory pain management from intrathecal duramorph. no complications SANIYA LYLE Dec 27, 2018 09:12
[2018-12-27] MEDS: SENNA/DOCUSATE NA (8.6MG/50MG) TAB PO SCH ×2 (10:12→21:27)
--- NOTE | 2018-12-27 10:35 | QN ---
Documentation Comment passing flatus afebrile vss abdomen tympanic wound dry calf neg for tenderness lochia min A s/p p c/s #2 leukocytosis P repeat CBC ISADORA GAMEZ MD Dec 27, 2018 10:35
[2018-12-27 16:29] VITALS: BP 109/75; PULSE 75; RESP 18
[2018-12-27 19:55] VITALS: BP 111/59; PULSE 88; RESP 16
[2018-12-28] MEDS: CLINDAMYCIN 600 MG/D5W (PMX) 50 ML IVPB SCH ×2 (00:23→05:56)
[2018-12-28] MEDS: IBUPROFEN 600 MG TAB PO SCH ×4 (00:23→17:47)
[2018-12-28 06:45] VITALS: BP 105/52; PULSE 78; RESP 16
[2018-12-28 08:55] VITALS: BP 114/68; PULSE 82; RESP 16
[2018-12-28] MEDS ORDERED: DIPHTH/TET/ACEL PERTUSS (ADULT) 0.5 ML VIAL IM* ONE (09:00)
[2018-12-28] MEDS: SENNA/DOCUSATE NA (8.6MG/50MG) TAB PO SCH ×2 (10:15→21:17)
[2018-12-28 11:25] VITALS: BP 114/68; PULSE 82; RESP 16
[2018-12-28 16:00] VITALS: BP 128/79; PULSE 83; RESP 16
[2018-12-28 20:20] VITALS: BP 130/82; PULSE 85; RESP 18
[2018-12-29] MEDS: IBUPROFEN 600 MG TAB PO SCH ×4 (00:40→18:08)
[2018-12-29 04:27] VITALS: BP 134/71; PULSE 69; RESP 18
--- NOTE | 2018-12-29 08:59 | DS ---
Date/Time of Note Date/Time of Note DATE: 12/29/18 TIME: 08:57 Obstetrical Discharge Record Final Diagnosis Final Diagnosis: Term delivered Other Final Diagnosis CAT II GHTN Section Section: Primary Primary Indication CATII tracing secondary to occult cord prolapse Condition on Discharge Physical Assessment Last Vitals: vss afebrile Voiding: Yes Bowel Movement: Yes Breast: Soft, non-tender Fundus: Firm Abdomen and Incision: soft wound dry Episiotomy: n/a Calf Tenderness: No Patient Condition: Stable ISADORA GAMEZ MD Dec 29, 2018 08:59
[2018-12-29 09:00] VITALS: BP 136/85; PULSE 73; RESP 16
--- NOTE | 2018-12-29 09:00 | PD.PPDC ---
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 Diagnosis [id number] Final Diagnosis: Kwxvx6a s/p primary c/s Condition Dhnex2Hb Patient Condition: Rtbzk1j Stable Diet Kaqoq1Jh Diet: Nxvtz8r Resume Regular Diet Activity/Restrictions Nlbhg6Yc Activity: Womsd0o May Shower Rfixy8Qe Restrictions: Pwgat6e No Exercising No Lifting No Driving Minimize Stair-climbing No Sexual Activity Nothing in the Vagina No [place] No Tampons, douche Wound/Drain Care Instructions Oibye1Rc Wound/Drain Care Instructions: Ebtig8t Wash with soap and water Keep clean and dry Follow-up Follow-up with Physician: 2, Week/Weeks Return to clinic for Tbode3Ci 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
[2018-12-29] MEDS: SENNA/DOCUSATE NA (8.6MG/50MG) TAB PO SCH (12:04)
[2018-12-29 16:00] VITALS: BP 135/91; PULSE 70; RESP 16
--- NOTE | 2019-01-02 11:26 | DELSUM ---
Delivery Summary A-C Datetime Report Generated by CPN: 01/02/2019 11:20 DELIVERY PERSONNEL Echo Technician: Vinod Win MATERNAL INFORMATION Delivery Anesthesia: Spinal Medications in Delivery: see anesthesia record Delivery QBL (ml): 800 Placenta Cultured: No Maternal Complications: Other Other Maternal Complications: Gestational hyptertension LABOR SUMMARY EDC: 01/11/2019 00:00 No. Babies in Womb: 1 Attempted: No Labor Anesthesia: Epidural LABOR INFORMATION Reason for Induction: Chronic Hypertension Onset of Labor: 12/25/2018 12:00 Complete Dilatation: 12/25/2018 15:48 Oxytocin: Induction Group B Beta Strep: Negative Antibiotics # of Doses: 1 Antibiotics Time of Last Dose: 12/25/2018 17:00 Steroids Given: None Reason Steroids Not Administered: Not Applicable MEMBRANES Membranes Rupture Method: Spontaneous Rupture of Membranes: 12/25/2018 15:48 Length of Rupture (hr): 1.38 Amniotic Fluid Color: Clear Amniotic Fluid Amount: Small Amniotic Fluid Odor: None STAGES OF LABOR Stage 1 hr: 3 Stage 1 min: 48 Stage 2 hr: 1 Stage 2 min: 23 Stage 3 hr: 0 Stage 3 min: 1 Total Time in Labor hr: 5 Total Time in Labor min: 12 CSECTION DELIVERY Primary Indication: Nonreassuring Stat Secondary Indication: Failure of Descent CSection Urgency: Non Elective CSection Incidence: Primary Labor: Labor Elective: Nonelective CSection Incision: Lower Uterine Transverse BABY A INFORMATION Delivery Date/Time: 12/25/2018 17:11 Method of Delivery: Born in Route : No : N/A Forceps: N/A Vacuum Extraction: N/A Shoulder Dystocia : N/A SHOULDER DYSTOCIA BABY A Delivery Date/Time: 12/25/2018 17:11 PRESENTATION/POSITION BABY A Presentation: Cephalic Cephalic Presentation: Vertex Vertex Position: Left Occipital Anterior Breech Presentation: N/A PLACENTA INFORMATION BABY A Placenta Delivery Time : 12/25/2018 17:12 Placenta Method of Delivery: Manual Removal Placenta Status: Delivered SCORES BABY A Heart Rate 1 min: Slow, Below 100 bpm Resp Effort 1 min: Slow, Irregular Reflex Irritability 1 min: Grimace Muscle Tone 1 min: Flaccid Color 1 min: Blue/Pale Resuscitation Effort 1 min: Tactile Stimulation; Oxygen; PPV/NCPAP SCORE 1 MIN: 3 Heart Rate 5 min: >100 bpm Resp Effort 5 min: Good Cry Reflex Irritability 5 min: Cough/Sneeze/Pulls Away Muscle Tone 5 min: Active Motion Color 5 min: Body [place], Extremit Blue Resuscitation Effort 5 min: Tactile Stimulation SCORE 5 MIN: 9 INFANT INFORMATION BABY A Gestational Age at Delivery: 37.4 Gestational Status: Early Term- 37- 38.6 Weeks Infant Outcome : Liveborn Infant Condition : Stable Sex: Male IDENTIFICATION/MEDS BABY A ID Band Number: [id number] ID Band Location: Right Leg; Left Arm Sensor Applied: Yes Sensor Number: [id number] Sensor Location : Cord Clamp Vitamin K Given : Not Given Erythromycin Given: Not Given WEIGHT/LENGTH BABY A Birthweight (gm): 3880 Weight (lb): 8 Weight (oz): 9 Infant Length (in): 21.00 Length (cm): 53.34 CORD INFORMATION BABY A No. Cord Vessels: 3 Nuchal Cord : N/A Cord Blood Taken: Yes Infant Suction: Mouth; Nose ASSESSMENT BABY A Complications: Extended Bradycardi; Multiple Late Decels; Multiple Variable Decels; Cor d Prolapse Complications- Other: occult cord prolapse Physical Findings at Delivery: Caput Succedaneum Respirations: Appears Normal Bed Maker/ALS Called : Yes Infant Care By: NICU team Transferred To: Remains with Mother
== END 2018-12-29 18:25 | disposition home or self-care (01) | DRG 788 ==
LOC: OBT 22:42 → L-D 22:42 → OBT 12-25 01:02 → L-D 12-25 01:02 → PP1 12-25 22:19
PROVIDERS: ADMIT Obstetrics & Gynecology; ATTEND Obstetrics & Gynecology
PROC: 10D00Z1 Extraction of Products of Conception, Low, Open Approach (ICD-10-PCS; principal; 2018-12-25 17:00)
DX: O13.4 Gestational [pregnancy-induced] hypertension without significant proteinuria, complicating childbirth (principal); O76 Abnormality in fetal heart rate and rhythm complicating labor and delivery; O69.0XX0 Labor and delivery complicated by prolapse of cord, not applicable or unspecified; Z3A.37 37 weeks gestation of pregnancy; Z37.0 Single live birth
CPT/HCPCS: 36600; 62319; 71045; 76815; 76818; 80053; 81001; 82803; 83735; 84560; 85025; 85610; 85730; 86592; 86850; 86900; 86901; 87340; 99464; G0463; J0690; J1100; J2175; J2210; J2274; J2405; J2590; J3010; J3475; J7120